=== PATIENT | female | born 1990 | race African-American/Black ===

== ENCOUNTER 2022-03-04 01:53 | Emergency (ER) | payer BC ==
[2022-03-04 02:08] VITALS: BP 118/78; PULSE 95; TEMP 98.1; BMI 29.2
[2022-03-04] MEDS ORDERED: CIPROFLOXACIN HCL 0.3% OPHTH 2.5ML BOTTLE ONE (02:18)
== END 2022-03-04 02:36 | disposition home or self-care (01) ==
LOC: FER 01:53
DX: U07.1 COVID-19 (principal)
CPT/HCPCS: 99283-25